=== PATIENT | female | born 1980 ===

== ENCOUNTER 2019-02-04 10:45 | Outpatient (CLI) | payer OTHER ==
[~2019-02-04] VITALS: Ht 152.4 cm; Wt 56.7 kg
== END 2019-02-04 11:20 | disposition home or self-care (01) ==
LOC: OFIC 805 10:45
DX: J31.0 Chronic rhinitis (principal); J34.2 Deviated nasal septum; J30.9 Allergic rhinitis, unspecified; J34.3 Hypertrophy of nasal turbinates

== ENCOUNTER 2022-10-08 06:15 | Day surgery (SDC) | payer OTHER ==
[~2022-10-08 06:15] MED LIST: EFFEXOR XR37.5 MG PO; WELLBUTRIN SR100 MG PO
== END 2022-10-08 18:00 | disposition home or self-care (01) ==
LOC: CIR.AMB 06:15
PROVIDERS: ATTEND Obstetrics & Gynecology
DX: N84.0 Polyp of corpus uteri (principal); Z20.822 Contact with and (suspected) exposure to COVID-19; F17.210 Nicotine dependence, cigarettes, uncomplicated